=== PATIENT | male | born 1930 | race Caucasian/White ===

== ENCOUNTER 2016-12-06 07:05 | Emergency (ER) | payer MEDICARE, OTHER ==
[~2016-12-06 07:05] MED LIST: ADULT ASPIRIN81 MG PO; AMBIEN5 MG PO; ASPIRIN LOW STR81 MG; ATENOLOL25 MG; ATENOLOL50 MG; AUGMENTIN875 MG PO; AXID; AXID150 MG; AXID150 MG PO; BAYER81 MG; CENTRUM SILVER1 TA; CITRACAL + D C1 EACH PO; CITRACAL 250 MG; CITRACAL200 MG; COLACE100 MG; COUMADIN5 MG; COUMADIN7.5 MG; DILTIAZEM HCL240; DILTZAC ER240 MG PO; FERROUS SULFATE1 TAB; FOLGARD TABLET1 TAB; FOLGARD TABLET1 TAB PO; FOLIC ACID/B-6/1 TAB; FOLIC ACID0.8 MG PO; FOSAMAX; FOSAMAX70 MG; FOSAMAX70 MG PO; GLUCOSAMINE & C1 CAP; LIPITOR40 MG; LIPITOR40 MG PO; MIRALAX12 EA PO; MIRALAX255 GM; NORCO 5/3251 TAB PO; PERCOCET; TENORMIN25 MG PO; ULTRAM50 MG; ULTRAM50 MG PO; VITAMIN C; WARFARIN SODIUM5 MG PO; [UNRECOGNIZED DRUG - OTHER] PO
[2016-12-06 08:11] LABS: INR 1.4 INR (0.9-1.1); PROTHROMBIN TIME 16.1 SECONDS (9.0-13.6)
[2016-12-06 08:14] LABS: BASO % 0.7 % (0-2); EOS % 2.8 % (0-7); EOSINOPHIL ABSOLUTE COUNT 0.2 tho/cmm (0.0-0.7); HCT-HEMATOCRIT 27.6 % (36.0-53.5); HGB-HEMOGLOBIN 9.4 gm/dl (13.5-17.0); IMMATURE GRANULOCYTES ABSOLUTE 0.02 tho/cmm (0-0.03); IMMATURE GRANULOCYTES PERCENT 0.3 % (0-0.3); LYMPH % 30.3 % (20-45); LYMPH ABSOLUTE COUNT 1.8 tho/cmm (0.8-4.5); MCH (MEAN CORPUSCULAR HGB) 36.6 pg (28.0-32.0); MCHC MEAN CORPUSCULAR HGB CONC 34.1 % (32.0-36.0); MCV (MEAN CELL VOLUME) 107.4 fl (82.0-96.0); MEAN PLATELET VOLUME 11.9 cmc (9.4-12.4); MONO % 8.6 % (0-12); MONOCYTE ABSOLUTE COUNT 0.5 tho/cmm (0.0-1.2); NEUTROPHIL ABSOLUTE COUNT 3.3 tho/cmm (1.6-8.0); NEUTROPHIL-AUTOMATED 3.3 tho/cmm (1.6-8.0); NEUTROPHILS % 57.3 % (40-80); PLATELET COUNT 143 tho/cmm (150-450); RED BLOOD COUNT 2.57 mil/cmm (4.40-5.70); RED CELL DISTRIBUTION WIDTH 15.8 % (12.4-16.4); WHITE BLOOD COUNT 5.8 tho/cmm (4.0-10.0)
[2016-12-06 08:23] LABS: ANION GAP 15 mmol/L (0-20); BLOOD UREA NITROGEN 29 mg/dl (6-24); CARBON DIOXIDE-VENOUS 25 mmol/L (22-32); CHLORIDE 107 mmol/l (96-110); CREATININE 1.35 mg/dl (0.60-1.30); GLUCOSE 92 mg/dL (70-110); SODIUM 143 mmol/L (135-145); eGFR VALUE FOR BLACK 55 mL/Min
[2016-12-06] MEDS ORDERED: LASIX40 M1 PO (08:27)
[2016-12-06 08:28] LABS: URINE BILIRUBIN NEGATIVE (NEG); URINE BLOOD NEGATIVE (NEG); URINE GLUCOSE (UA) NEGATIVE (NEG); URINE KETONE NEGATIVE (NEG); URINE LEUKOCYTE ESTERASE NEGATIVE (NEG); URINE NITRITE NEGATIVE (NEG); URINE PROTEIN SMALL (NEG); URINE SPECIFIC GRAVITY 1.015 (1.003-1.030)
[2016-12-06] MEDS ORDERED: ALDACTONE25 M1 PO (08:28)
[2016-12-06] MEDS ORDERED: ELIQUIS5 M1 PO (08:30)
[2016-12-06] MEDS ORDERED: AMIODARONE HCL200 M1 PO (08:30)
[2016-12-06 08:31] LABS: URINE APPEARANCE CLEAR; URINE COLOR YELLOW
[2016-12-06 08:41] LABS: URINE EPITHELIAL CELLS 0-1 /[HPF] (0-10); URINE RBC 0-1 /[HPF] (0-5); URINE WBC 0-1 /[HPF] (0-5)
[2016-12-06] MEDS ORDERED: FLOMAX0.4 M1 PO (08:55)
[2016-12-06] MEDS ORDERED: KEFLEX500 M4 PO (08:55)
== END 2016-12-06 09:20 ==
LOC: EDMED 07:05
PROVIDERS: Emergency Medicine
PROC: 0T9B70Z Drainage of Bladder with Drainage Device, Via Natural or Artificial Opening (ICD-10-PCS; principal; 2016-12-06)
PROC: 4A0D7LZ Measurement of Urinary Volume, Via Natural or Artificial Opening (ICD-10-PCS; 2016-12-06)
DX: R33.9 Retention of urine, unspecified (principal); R04.0 Epistaxis; D58.9 Hereditary hemolytic anemia, unspecified; I50.9 Heart failure, unspecified; Z95.1 Presence of aortocoronary bypass graft; Z95.2 Presence of prosthetic heart valve; Z79.82 Long term (current) use of aspirin; Z79.899 Other long term (current) drug therapy

== ENCOUNTER 2016-12-10 08:00 | Emergency (ER) | payer MEDICARE, OTHER ==
[~2016-12-10 08:00] MED LIST changes: +ALDACTONE25 M1 PO; +AMIODARONE HCL200 M1 PO; +ELIQUIS5 M1 PO; +FLOMAX0.4 M1 PO; +KEFLEX500 M4 PO; +LASIX40 M1 PO
== END 2016-12-10 08:50 ==
LOC: EDMED 08:00
DX: T83.84XA Pain due to genitourinary prosthetic devices, implants and grafts, initial encounter (principal); I50.9 Heart failure, unspecified